=== PATIENT | female | born 1970 | race Asian ===

== ENCOUNTER 2017-09-06 14:34 | Emergency (ER) | END 2017-09-06 19:08 | disposition home or self-care (01) ==

== ENCOUNTER 2017-10-15 08:08 | Day surgery (SDC) | END 2017-10-15 14:42 | disposition home or self-care (01) ==

== ENCOUNTER 2018-01-12 05:54 | Day surgery (SDC) | END 2018-01-12 15:11 | disposition home or self-care (01) ==